=== PATIENT | female | born 1945 | race Caucasian/White ===

== ENCOUNTER → 2017-04-21 | Outpatient (CLI) | payer MEDICARE, MEDICAID ==
--- NOTE | ~2017-04-21 | NDGEN ---
PATIENT'S NAME: EMRE LI [facility] AGE: 72 Y [address] ROOM: [place] [address] LOCATION: [facility] ADMIT DATE: 04/21/2017 Neurodiagnostics DISCHARGE DATE: FAMILY PHYSICIAN: Rosemarie Bonner MD ATTENDING PHYSICIAN: Srini Canas PROCEDURE: ELECTROENCEPHALOGRAM DATE OF PROCEDURE: 04/21/2017 TEST: TECH: CLINICAL DIAGNOSIS: DURATION OF EE minutes. REASON FOR EEG: Memory loss/ataxia. CLINICAL HISTORY: The patient is a 72-year-old female, who has history of memory loss and ataxia, who is coming in for an EEG evaluation. EEG FINDINGS: The patient is awake for majority of the EEG with maximal activation and background of 9 hertz was seen in the posterior head regions, which is symmetrical, rhythmical, waxing, and waning. Activation procedures included photic stimulation between 3-30 hertz, which did not show any abnormalities. CLASSIFICATION: Normal, awake, drowsy 10/20 scalp electrodes. IMPRESSION: This EEG is within normal limits. No epileptiform discharges or EEG seizures were seen during this recording. MD SANDRA RAIN/nakul /[id number] dtt: 04/22/17 0020 , dtd:
[2017-04-21 11:25] LABS: CREATININE 0.8 mg/dL (0.5-1.1)
== END | disposition disaster alternative care site (69) ==
LOC: GLAB 10:31 → GRAD 13:00
PROVIDERS: Psychiatry & Neurology Neurology
DX: R41.3 Other amnesia (principal); R27.0 Ataxia, unspecified; G31.9 Degenerative disease of nervous system, unspecified; I63.8 Other cerebral infarction
CPT/HCPCS: A9577